=== PATIENT | female | born 2000 | race Caucasian/White ===

== ENCOUNTER → 2024-07-10 12:51 | Outpatient (REF) | payer OTHER, SELFPAY | LOC: HWRAD 12:51 | PROVIDERS: ATTENDING PHYSICIAN Internal Medicine Endocrinology, Diabetes & Metabolism; FAMILY PHYSICIAN Family Medicine | DX: E05.00 Thyrotoxicosis with diffuse goiter without thyrotoxic crisis or storm (principal) | CPT/HCPCS: 76536 ==

== ENCOUNTER 2024-07-12 12:22 | Emergency (ER) | payer OTHER, SELFPAY ==
[2024-07-12 12:32] VITALS: BP 116/85
[2024-07-12 12:49] VITALS: BMI 18.5
--- NOTE | 2024-07-12 12:57 | EDRN ---
Pt states she has a clogged R ear w/ear wax, has been using debrox at home, went to UC but unable to remove blockage there, and has continued as recommended by UC using debrox w/out relief. Pt states she has pressure and ringing in her R ear.
--- NOTE | 2024-07-12 14:58 | ED.GENMED ---
History of Present Illness
General
Chief Complaint: Ear Problem
Source: patient
Exam Limitations: none
Time Seen by Provider: 07/12/24 13:14
Nursing documentation reviewed up to this point in time: agreed with
History of Present Illness
History of Present Illness:
23-year-old female presenting to the emergency department today with concerns of earwax to the right ear try to have this removed 2 days ago but unsuccessful in urgent care using Debrox without relief at home. Trouble hearing out of the right ear
secondary to this.
Review of Systems
Review of Systems
Allergies reviewed?: Yes
All Other Systems: ROS reviewed and negative except as documented in HPI and ROS
Phy Exam
Physical Exam
Physical Exam:
GENERAL: Alert , in no apparent distress
EYE: pupils equal and reactive
NECK: Supple, no significant adenopathy.
ENT: Cerumen impaction to the right ear. o/p clr, mmm.
CARDIAC: Regular rate and rhythm .
LUNGS: Clear breath sounds bilaterally, no acute respiratory distress, no wheezes/rales/rhonchi
ABDOMEN: Soft, without focal tenderness, no r/g, no cvat
NEUROLOGICAL: Alert and oriented, no focal neuro deficits
SKIN: Warm and dry, skin intact.
MUSCULOSKELETAL: No edema, well perfused.
PSYCH: Normal and appropriate interaction.
Course
Vital Signs
Initial and Last Documented VS:
Initial Vital Signs
Temp Pulse Resp BP Pulse Ox
98.2 F 106 18 116/85 98
07/12/24 12:32 07/12/24 12:32 07/12/24 12:32 07/12/24 12:32 07/12/24 12:32
Last Documented Vital Signs
Temp Pulse Resp BP Pulse Ox
98.2 F 106 18 116/85 98
07/12/24 12:32 07/12/24 12:32 07/12/24 12:32 07/12/24 12:32 07/12/24 12:32
Procedures
Foreign Body Removal-Ear
Right External canal:
Tenderness: mild
Any local drainage: none
External ear canal cleaned with removal of cerumen using: curette, irrigation and irrigation and curette
Removal of foreign body using: irrigation, simple forceps and curette
Exam of canal after removal: inflammation of canal
Additional Information:
Cerumen impaction removal
MDM/Problems Addressed
MDM/Problems Addressed:
23-year-old female presenting to the emergency department today with concerns of right ear cerumen impaction. This was removed with irrigation here. Patient stable for discharge otherwise. Return precautions given.
*Critical Care Note
Total Time (30-74mins, 75-104mins- exclusive of procedures): Not Applicable
ED Attending Note
-
Portions of this chart may have been created with voice recognition software.� Occasional wrong word or��sound alike� substitutions may have occurred due to the inherent limitations of voice recognition software.
Discharge Plan
Departure
Patient Disposition: Home (Routine Discharge)
Date of Disposition: 07/12/24
Time of Disposition: 14:59
Patient with high blood pressure during this ER visit?: No
Condition: Good
Covid-19: Not Applicable
Discharge Problem:
Cerumen impaction
Instructions: Ear wax impaction
Prescriptions:
New
ofloxacin 0.3 % drops
10 drp otic (ear) DAILY 7 Days Qty: 10 0RF
Referrals:
Milind Robledo DO [Family Provider] -
Bonilla Alicea MD [Active] - Follow up in 5-7 days
Activity Restrictions/Additional Instructions:
You came to the emergency department today with concerns of a cerumen impaction. This was removed here. Please continue with outpatient treatment. Return to the emergency department or worsening, new or concerning symptoms.
Interventions
Interventions:
*Risk Screen - Suicide Last Done: 07/12/24 12:32
*General Assessment Last Done: 07/12/24 12:32
*Neglect/Abuse Screening Last Done: 07/12/24 12:35
ED- Fall Risk Assessment Last Done: 07/12/24 12:51
*ED COVID-19 Vaccine History Last Done: 07/12/24 12:50
Discharge Date and Time
Print Language: [place]
== END 2024-07-12 15:22 | disposition home or self-care (01) ==
LOC: EMR 12:22
PROVIDERS: EMERGENCY PHYSICIAN Student in an Organized Health Care Education/Training Program; FAMILY PHYSICIAN Family Medicine
DX: H61.21 Impacted cerumen, right ear (principal)
CPT/HCPCS: 99282; 69210